=== PATIENT | female | born 1970 | race Caucasian/White ===

== ENCOUNTER 2017-04-03 16:47 | Emergency (ER) | payer MEDICAID ==
[2017-04-03 16:56] VITALS: BP 125/77; PULSE 77; RESP 17; TEMP 98.4; O2SAT 99
--- NOTE | 2017-04-03 17:23 | EDPHY ---
H & P Time Seen by Provider: 04/03/17 17:09 HPI/ROS: CHIEF COMPLAINT: Right shoulder injury HISTORY OF PRESENT ILLNESS: 47-year-old female presents to the emergency department by private vehicle complaining of pain in her right shoulder. 3 days ago she fell going down the stairs and thinks that she hyper extended her right shoulder as she was putting her arm back to brace her fall. She complains of isolated pain to the right shoulder specially with the movement. She is right-hand dominant. Denies any other trauma or injury. She did not hit her head or lose consciousness. ROS: Denies numbness or tingling in her fingers, pain in her right wrist or elbow. Denies neck pain. Past Medical/Surgical History: Hysterectomy Social History: Single Smoking Status: Current some day smoker Physical Exam: On examination there is no obvious swelling or deformity noted to the right shoulder. She is able to internally rotate as well as externally rotate the right shoulder with some discomfort. She has reproducible pain with palpation of the over the right AC joint as well as over the distal clavicle. No palpable crepitus or other bony abnormality. Full range of motion of the right elbow and right wrist. Strong radial pulse at the right wrist. Constitutional: Initial Vital Signs Temperature (C) 36.9 C 04/03/17 16:53 Heart Rate 77 04/03/17 16:53 Respiratory Rate 17 04/03/17 16:53 Blood Pressure 125/77 H 04/03/17 16:53 O2 Sat (%) 99 04/03/17 16:53 O2 Delivery Mode Room Air Allergies/Adverse Reactions: codeine Allergy (Verified 04/03/17 16:51) erythromycin base Allergy (Verified 04/03/17 16:52) morphine Allergy (Verified 04/03/17 16:52) Home Medications: Medication Instructions Recorded GABAPENTIN 04/03/17 LaMICtal 04/03/17 Remeron 04/03/17 traZODone 04/03/17 MDM/Departure - MDM Imaging Results: Imaging Impressions Clavicle X-Ray 04/03/17 17:10 Impression: No acute osseous abnormality. Imaging: I viewed and interpreted images myself Procedures: Patient was placed in a sling for comfort and examined post application in good placement with normal TANK TENDER. ED Course/Re-evaluation: 47-year-old female presents to the emergency department with right shoulder injury. X-rays reveal no fractures. She was placed in a sling and given orthopedic referral. - Depart Disposition: Home, Routine, Self-Care Clinical Impression: Sprain of right shoulder Qualifiers: Encounter type: initial encounter Shoulder sprain type: unspecified sprain Qualified Code(s): S43.401A - Unspecified sprain of right shoulder joint, initial encounter Condition: Good Instructions: Shoulder Sprain (ED) Additional Instructions: Ibuprofen 600 mg every 8 hours as needed for pain. Sling for comfort and support. Follow up with orthopedic surgeon next week to recheck. Return to the emergency department if you developed numbness or tingling in your fingers, feelings of weakness in her right upper extremity, or if you feel worse in any way. Referrals: Gume Castano MD [Medical Doctor] - 5-7 days, call for appt. (Orthopedic surgeon on-call)
== END 2017-04-03 18:47 | disposition home or self-care (01) ==
DX: S43.401A Unspecified sprain of right shoulder joint, initial encounter (principal); F17.200 Nicotine dependence, unspecified, uncomplicated; W10.8XXA Fall (on) (from) other stairs and steps, initial encounter
CPT/HCPCS: A4565

== ENCOUNTER 2017-09-05 10:06 | Emergency (ER) | payer OTHER, MEDICAID ==
[2017-09-05 10:15] VITALS: RESP 16; TEMP 97.9
[2017-09-05] MEDS ORDERED: OXYCODONE/APAP 5/325 TAB PO ONE (11:01)
--- NOTE | 2017-09-05 11:01 | EDPHY ---
General Narrative: CHIEF COMPLAINT: Head injury HISTORY OF PRESENT ILLNESS: Patient presents with complaints of head injury while at work. This happened at 8:00 a.m. today. She was getting something out of her locker when her skis fell. She bent over to pick them up and when she stood up she struck her head. She is not entirely sure what she hit but she thinks it was part of her locker with a locker door. She did not lose consciousness but had "a quick black out." She has a headache and mild nausea. No vomiting. No changes in vision at this time. No neck pain or stiffness. She does have a laceration that was bleeding heavily but has stopped with simple pressure. She has no injury elsewhere. No numbness or tingling. No difficulty ambulating. Tetanus is up-to-date. No other associated complaints or modifying factors. TIME OF INJURY: 8:00 a.m. today TETANUS STATUS: Less than 10 years ago MEDICAL/SURGICAL/SOCIAL HISTORY: Bipolar and anxiety. Nonsmoker. 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 Scalp laceration as below. No Walters sign. No raccoon eyes. No depression or hematoma. ENT: Pupils are equal, round and reactive to light. EOMs intact. Neck: Supple nontender. No crepitus, step-off or deformity. Cardiovascular: Pulses normal throughout. No murmur. Brisk cap refill Neurological: GCS 15. Cranial nerves 2-12 grossly intact. A&O, sensory symmetric, plate developer strength in the strength symmetric. Normal toe walk. Normal heel walk. No pronator drift. Normal [id number]. Skin: Warm and dry, no rash. There is a 1 cm laceration to the top of the scalp. No active bleeding. No foreign body. No injury to the galea noted. Extremities: Nontender, no pedal edema DIFFERENTIAL DIAGNOSES: Including but not limited to intracranial hemorrhage, basilar skull fracture, concussion, closed head injury, scalp laceration MDM: 10:45 a.m. Closed head injury with scalp laceration. Difficult to fully evaluate the wound at this time is that needs to be irrigated. [place] CT head rules are negative. Additionally her mechanism is mild I do not feel she warrants CT scan of the head at this time. Her neuro exam is fully intact. She is ambulating well without assistance. She is not vomiting. I have anesthetize the laceration. Proceed with irrigation every exploration. 11:30 a.m. Wound has been clean and I have re-evaluated. There is a 1 cm superficial laceration on the top of the scalp. I have close this was staple pair without complication. We discussed wound care. We discussed follow up with worker's compensation Clinic. We discussed ED precautions for worsening headache, dizziness, syncope, vomiting, neck pain or stiffness. I do feel she is stable for discharge home with anti-inflammatories and precautions as discussed. Return in 10 days for staple removal. She is comfortable this plan and discharged home stable condition. PROCEDURE: Laceration repair Consent: Verbal Location: Scalp Length of repair: 1 cm Complexity: Simple Layer involvement: Single Anesthesia: Local. 1% lidocaine plain. 5 mL Irrigation: Extensive Debridement: None Procedure description: Following good anesthesia, the wound was copiously irrigated. Wound bed was explored with a sterile glove, and there is no foreign body noted. There is no exposure of the galea. Wound borders were approximated well with good hemostasis. Tolerated well without complication. Suture/Staple material: 1 Staple Wound care: Routine as discussed Suture/Staple removal: 10 Days SUPERVISION: Patient was independently examined, but I discussed the case with my secondary supervising physician Dr. Garcia. ED Precautions: Worsening pain. Erythema, edema, cyanosis, pallor, paresthesia or anesthesia. - History Smoking Status: Former smoker - Objective Vital Signs: Initial Vital Signs Temperature (C) 97.9 F 09/05/17 10:11 Heart Rate 92 09/05/17 10:11 Respiratory Rate 16 09/05/17 10:11 Blood Pressure 123/85 H 09/05/17 10:11 O2 Sat (%) 98 09/05/17 10:11 O2 Delivery Mode Room Air Allergies/Adverse Reactions: codeine Allergy (Verified 04/03/17 16:51) erythromycin base Allergy (Verified 04/03/17 16:52) morphine Allergy (Verified 04/03/17 16:52) Home Medications: Medication Instructions Recorded GABAPENTIN 04/03/17 LaMICtal 04/03/17 Remeron 04/03/17 traZODone 04/03/17 Medications Given: Discontinued Medications Oxycodone/Acetaminophen (Percocet 5/325) 1 tab PO EDNOW ONE Stop: 09/05/17 11:02 Last Admin: 09/05/17 11:04 Dose: 1 tab Departure - Departure Disposition: Home, Routine, Self-Care Clinical Impression: Scalp laceration Qualifiers: Encounter type: initial encounter Qualified Code(s): S01.01XA - Laceration without foreign body of scalp, initial encounter Closed head injury Qualifiers: Encounter type: initial encounter Qualified Code(s): S09.90XA - Unspecified injury of head, initial encounter Condition: Good Instructions: Concussion (ED), Head Injury (ED), Staple Care (ED) Additional Instructions: 1. Keep the wound clean, dry 2. No submersion in hot tubs or swimming pools until molina are removed 3. Staple removal in 10 days 4. Contact her worker's compensation Clinic for further care 5. ED precautions for worsening headache, vomiting, visual disturbance, neck pain or stiffness, numbness, tingling or weakness Referrals: NONE *PRIMARY CARE P,. [Primary Care Provider] - As per Instructions Mimi Syed DO [Doctor of Osteopathy] - As per Instructions Stand Alone Forms: Work Limited Duty, Work Comp Follow Up
[2017-09-05 12:08] VITALS: BP 109/60; PULSE 70; O2SAT 96
== END 2017-09-05 12:08 | disposition home or self-care (01) ==
PROC: 0HQ0XZZ Repair Scalp Skin, External Approach (ICD-10-PCS; principal; 2017-09-05)
DX: S01.01XA Laceration without foreign body of scalp, initial encounter (principal); V00.321A Fall from snow-skis, initial encounter; Y92.69 Other specified industrial and construction area as the place of occurrence of the external cause; Y99.0 Civilian activity done for income or pay; Y93.89 Activity, other specified; Z87.891 Personal history of nicotine dependence

== ENCOUNTER 2017-11-29 18:02 | Emergency (ER) | payer MEDICAID ==
[2017-11-29 18:12] VITALS: TEMP 98.6
[2017-11-29] MEDS ORDERED: AZITHROMYCIN 250 MG TAB PO ONE (18:28)
[2017-11-29] MEDS ORDERED: IPRATROPIUM/ALBUTEROL 3 ML DEYVIAL IH ONE (18:28)
[2017-11-29] MEDS ORDERED: IBUPROFEN 600 MG TAB PO ONE (18:44)
--- NOTE | 2017-11-29 19:05 | EDPHY ---
H & P Time Seen by Provider: 11/29/17 18:14 HPI/ROS: This patient complains of dyspnea cough and ear pain. She explains that she has had a dry cough for 3 weeks now occasionally productive of sputum the feeling of chest congestion that is increased over the past few days. 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 The wheezing and shortness of breath of just started up over the past couple days. She has associated fatigue. She reports"sore chest muscles"but denies any pleuritic pain. Her or girlfriend/life partner brought her in by private vehicle for evaluation of her symptoms. ROS: Constitutional: No high fevers or chills though she has had some subjective low-grade fevers. HEENT: Nasal congestion but no sinus pain. She does have moderate right ear pain currently 4/10 intensity that improves with ibuprofen. Last dose of ibuprofen was 600 mg this morning. She denies sore throat or other HEENT complaints. Pulmonary: No hemoptysis. No respiratory distress. Cardiovascular: No heart palpitations. She denies any leg swelling or calf pain. GI: No abdominal pain, nausea vomiting Integumentary: No rash. 7 point ROS is otherwise negative Past Medical/Surgical History: Mood disorder She describes reactive airway disease with wheezing episodes when she gets colds as an adult in recent years. Smoking Status: Former smoker (The patient describes an approximate 15 pack- year smoking history and just quit 2 months ago.) Physical Exam: Physical Exam Vital signs are normal. General: No acute distress HEENT: Nose: Clear discharge bilaterally. No sinus tenderness to percussion. Ears: Right external canals clear right TM evaluation reveals a clear effusion. Left External canal and tympanic membrane is clear with no erythema or abnormal findings bilaterally. Oropharynx: No erythema or exudates. No dysphonia. No drooling or stridor. Eyes: Pupils equal and react to light. Extraocular motions are intact. Neck: Supple with no meningismus. No lymphadenopathy Lungs: Diminished breath sounds throughout bilaterally with wheezing. No rales or rhonchi appreciated. Cardiac: Regular rate and rhythm with no murmur gallop or rub no peripheral edema or calf tenderness. Skin: No rash or pallor. Neuro: Alert with no focal deficits noted. Initial differential diagnosis: Acute bronchitis, COPD with exacerbation, URI with reactive airway disease, pneumonia, serous otitis Constitutional: Initial Vital Signs Temperature (C) 37 C 11/29/17 18:09 Heart Rate 78 11/29/17 18:09 Respiratory Rate 18 11/29/17 18:09 Blood Pressure 117/62 11/29/17 18:09 O2 Sat (%) 95 11/29/17 18:09 O2 Delivery Mode Room Air Allergies/Adverse Reactions: codeine Allergy (Verified 04/03/17 16:51) erythromycin base Allergy (Verified 04/03/17 16:52) morphine Allergy (Verified 04/03/17 16:52) Home Medications: Medication Instructions Recorded GABAPENTIN 04/03/17 LaMICtal 04/03/17 Remeron 04/03/17 traZODone 04/03/17 Albuterol Hfa Anes Only [Proair 2 puffs IH Q4 PRN #1 mdi 11/29/17 Hfa Icu (*)] Azithromycin [Zithromax] 250 mg PO DAILY #4 tab 11/29/17 Fluticasone Hfa 220 Mcg [Flovent 2 puffs IH DAILY #1 mdi 11/29/17 220 MCG Hfa MDI (*)] MDM/Departure - MDM Medications Given: Discontinued Medications Albuterol/Ipratropium (Duoneb) 3 ml IH EDNOW ONE Stop: 11/29/17 18:29 Last Admin: 11/29/17 18:36 Dose: 3 ml Azithromycin (Zithromax) 500 mg PO EDNOW ONE PRN Reason: Protocol Stop: 11/29/17 18:29 Last Admin: 11/29/17 18:35 Dose: 500 mg Ibuprofen (Motrin) 600 mg PO EDNOW ONE Stop: 11/29/17 18:45 Last Admin: 11/29/17 18:53 Dose: 600 mg ED Course/Re-evaluation: Patient's initial peak flow was 250. She is given albuterol/Atrovent DuoNeb with marked improvement-increased aeration decreased wheeze subjective improvement in improvement in her peak flow to 400. Is given 1st dose of Zithromax 500 mg p.o. Discussion: Patient with significant reactive airway disease judging by her marked improvement with albuterol in terms of her peak flow. I counseled regarding this. She may also have an element of chronic bronchitis given her extensive smoking history. We discussed possibility of a chest x-ray but without hearing rales with a good O2 sat with less than 4 weeks duration of cough elected to hold off on chest x-ray at this time. Patient is comfortable with this plan. Her"chest muscle pain is consistent with her exam test chest wall tenderness. Will treat the patient with albuterol and Flovent steroid inhaler with Zithromax. I referred her to ferry terminal supervisor on-call if she has any ongoing symptoms. She understands the need to return emergency department should she develop any worsening of her symptoms despite the treatment plan. Answered all her questions prior to discharge home. - Depart Disposition: Home, Routine, Self-Care Clinical Impression: Acute bronchitis Qualifiers: Bronchitis organism: unspecified organism Qualified Code(s): J20.9 - Acute bronchitis, unspecified Serous otitis media Qualifiers: Chronicity: acute Laterality: right Recurrence: not specified as recurrent Qualified Code(s): H65.01 - Acute serous otitis media, right ear Condition: Good Instructions: Acute Bronchitis (ED), Reactive Airways Disease (ED), Serous Otitis Media (ED) Additional Instructions: Diagnoses: 1. Acute bronchitis 2. Reactive airway disease 3. Serous otitis Plan: Humidifier Guaifenesin Albuterol inhaler with spacer for cough, wheeze or shortness of breath Flovent steroid inhaler for 10-14 days Zithromax antibiotic as prescribed Ibuprofen in addition for discomfort and also to help swelling in your ear. Follow up with primary care physician for any ongoing symptoms. Consider follow -up with ferry terminal supervisor for any ongoing respiratory symptoms. Return emergency department for any significant worsening despite the treatment plan Stand Alone Forms: Work Excuse Prescriptions: Albuterol Hfa Anes Only [Proair Hfa Icu (*)] 2 puffs IH Q4 PRN #1 mdi PRN Reason: Wheezing Azithromycin [Zithromax] 250 mg PO DAILY #4 tab Fluticasone Hfa 220 Mcg [Flovent 220 MCG Hfa MDI (*)] 2 puffs IH DAILY #1 mdi Referrals: NONE *PRIMARY CARE P,. [Primary Care Provider] - As per Instructions Siva Will MD [Medical Doctor] - As per Instructions
[2017-11-29 19:47] VITALS: BP 110/67; PULSE 82; RESP 14; O2SAT 92
== END 2017-11-29 19:25 | disposition home or self-care (01) ==
LOC: CED 18:02
DX: J20.9 Acute bronchitis, unspecified (principal); H65.01 Acute serous otitis media, right ear; Z87.891 Personal history of nicotine dependence

== ENCOUNTER 2018-03-13 13:31 | Emergency (ER) | payer MEDICAID ==
[2018-03-13 13:37] VITALS: BP 111/75
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
[2018-03-13] MEDS ORDERED: KETOROLAC 30 MG/1 ML SDV IM ONE (14:16)
== END 2018-03-13 14:39 | disposition home or self-care (01) ==
DX: S89.92XA Unspecified injury of left lower leg, initial encounter (principal); J45.909 Unspecified asthma, uncomplicated; Z87.891 Personal history of nicotine dependence; V29.9XXA Motorcycle rider (driver) (passenger) injured in unspecified traffic accident, initial encounter; Y92.410 Unspecified street and highway as the place of occurrence of the external cause; Y99.8 Other external cause status; Y93.89 Activity, other specified
CPT/HCPCS: J1885

== ENCOUNTER → 2018-03-25 | Outpatient (CLI) | payer MEDICAID | LOC: FIMAGING 10:08 | PROVIDERS: ATTEND Orthopaedic Surgery | DX: S83.252A Bucket-handle tear of lateral meniscus, current injury, left knee, initial encounter (principal); S83.412A Sprain of medial collateral ligament of left knee, initial encounter; M22.42 Chondromalacia patellae, left knee ==

== ENCOUNTER 2018-04-03 08:51 | Day surgery (SDC) | payer MEDICAID ==
[2018-04-03] MEDS ORDERED: ceFAZolin 2 GM/DEXTROSE 100 ML IV ONE (09:09)
[2018-04-03] MEDS ORDERED: PREGABALIN 150 MG CAP PO ONE (09:09)
[2018-04-03] MEDS ORDERED: LR 1,000 ML IV ONE (09:10)
[2018-04-03] MEDS ORDERED: EPINEPHrine 1 MG/ML INJ ONE (09:36)
[2018-04-03] MEDS ORDERED: VANCOMYCIN 1 GM VIAL ONE (09:36)
[2018-04-03] MEDS ORDERED: BUPIVACAINE 0.25% 30 ML SDV ONE (09:36)
--- NOTE | 2018-04-03 10:44 | PDANEPAE ---
ANE History of Present Illness l acl tear ANE Past Medical History - Cardiovascular History Hx Hypertension: No Hx Arrhythmias: No Hx Chest Pain: No Hx Coronary Artery / Peripheral Vascular Disease: No Hx CHF / Valvular Disease: No Hx Palpitations: No - Pulmonary History Hx COPD: No Hx Asthma/Reactive Airway Disease: No Hx Recent Upper Respiratory Infection: No Hx Oxygen in Use at Home: No Hx Sleep Apnea: No Sleep Apnea Screening Result - Last Documented: Negative Pulmonary History Comment: hx of pna and bronchitis the last 3 yrs- no issues since 06/2017 - Neurologic History Hx Cerebrovascular Accident: No Hx Seizures: No Hx Dementia: No - Endocrine History Hx Diabetes: No - Renal History Hx Renal Disorders: No - Liver History Hx Hepatic Disorders: No - Neurological & Psychiatric Hx Hx Neurological and Psychiatric Disorders: Yes Neurological / Psychiatric History Comment: extreme anxiety with panic attacks. depression. bipolar. hyperactivity disorder- is a "runner" when she gets anxious - Cancer History Hx Cancer: No - Congenital Disorder History Hx Congenital Disorders: No - GI History Hx Gastrointestinal Disorders: No - Other Health History Other Health History: left hand has cast currently- broken left 5th metacarpal. wears glasses at night. contacts for special events - Chronic Pain History Chronic Pain: No - Surgical History Prior Surgeries: hysterectomy 2014 ANE Review of Systems Review of Systems: - Exercise capacity METS (RN): 4 METS ANE Patient History - Allergies Allergies/Adverse Reactions: bee venom protein (honey bee) Allergy (Verified 03/28/18 11:30) codeine Allergy (Verified 03/28/18 11:30) little bit of a rash erythromycin base Allergy (Verified 03/28/18 11:30) makes me seriously sick morphine Allergy (Verified 03/28/18 11:30) unknown rxn- needed to be intubated - Home Medications Home Medications: LaMICtal 04/03/17 [Last Taken 04/02/18 19:00] Remeron 04/03/17 [Last Taken 04/03/18 07:00] traZODone PRN 04/03/17 [Last Taken 2 Days Ago ~04/01/18] Ibuprofen 03/28/18 [Last Taken 03/28/18] Hydrocodone/APAP 5/325 [[place] 5/325 (*)] 1 tab PO 04/03/18 [Last Taken 04/03/18] - NPO status NPO Since - Liquids (Date): 04/02/18 NPO Since - Liquids (Time): 23:00 NPO Since - Solids (Date): 04/02/18 NPO Since - Solids (Time): 17:00 - Smoking Hx Smoking Status: Former smoker - Family Anes Hx Family Hx Anesthesia Complications: father- had special recommendations with intubation d/t larynx issues ANE Labs/Vital Signs - Vital Signs Blood Pressure: 128/77 Heart Rate: 78 Respiratory Rate: 14 O2 Sat (%): 97 Height: 167.64 cm Weight: 65.771 kg ANE Physical Exam - Airway Neck exam: FROM Mallampati Score: Class 2 Mouth exam: normal dental/mouth exam - Pulmonary Pulmonary: no respiratory distress - Cardiovascular Cardiovascular: regular rate and rhythym - ASA Status ASA Status: II ANE Anesthesia Plan Anesthesia Plan: GA w LMA Regional Anesthesia: adductor canal FNB
[2018-04-03] MEDS ORDERED: fentaNYL 100 MCG/2 ML INJ ONE ×6 (10:48→14:49)
[2018-04-03] MEDS ORDERED: MIDAZOLAM 2 MG/2 ML VIAL ONE ×2 (10:48)
--- NOTE | 2018-04-03 10:48 | PDHPUP ---
History & Physical Update H&P update statement: This history and physical update is based on an assessment of the patient which was completed after admission or registration (within 24 hours), but prior to the surgery/procedure. H&P update: H&P reviewed & patient examined, no change in patient's condition since H&P completed
[2018-04-03] MEDS ORDERED: PROPOFOL/EMULSION 500 MG/50 ML BOTTLE IV ONE (11:21)
[2018-04-03] MEDS ORDERED: HYDROmorphONE/DILAUDID 2 MG/ML INJ ONE (11:46)
[2018-04-03] MEDS ORDERED: ONDANSETRON 4 MG/2 ML VIAL ONE (13:51)
[2018-04-03] MEDS ORDERED: DEXAMETHASONE 4 MG/ML VIAL ONE (13:51)
[2018-04-03] MEDS ORDERED: ONDANSETRON 4 MG/2 ML VIAL IVP PRN (13:55)
[2018-04-03] MEDS ORDERED: PROMETHAZINE HCL 25 MG/ML INJ IVP PRN (13:55)
[2018-04-03] MEDS ORDERED: HYDROmorphONE/DILAUDID 1 MG/ML INJ IVP PRN (13:55)
[2018-04-03] MEDS ORDERED: NALOXONE HCL 0.4 MG/ML INJ IVP PRN (13:55)
--- NOTE | 2018-04-03 14:02 | POSTANESTH ---
Post Anesthetic Evaluation Cardiovascular Status: Normal, Stable Respiratory Status: Normal, Stable Level of Consciousness/Mental Status: Can Participate in Eval Pain Control: Adequate, Prn Tx Ordered Nausea/Vomiting Control: Adequate, Prn Tx Ordered Complications Possibly Related to Anesthesia: None Noted
[2018-04-03] MEDS ORDERED: MEPERIDINE 25 MG/0.5 ML AMP IVP ONE (14:06)
[2018-04-03] MEDS: fentaNYL 100 MCG/2 ML INJ IVP PRN ×3 (14:10→14:51)
[2018-04-03] MEDS ORDERED: MEPERIDINE 25 MG/0.5 ML AMP ONE (14:14)
[2018-04-03] MEDS ORDERED: HYDROmorphONE/DILAUDID 1 MG/ML INJ ONE (14:22)
[2018-04-03] MEDS ORDERED: DIAZEPAM 5 MG/ML 1 ML SYR ONE (14:26)
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
[2018-04-03 15:51] VITALS: BP 129/81
[2018-04-03] MEDS ORDERED: OXYCODONE/APAP 5/325 TAB PO ONE (16:30)
--- NOTE | 2018-04-08 18:08 | GOP ---
[f rep st] OPERATIVE REPORT DATE OF OPERATION: 04/03/2018 SURGEON: Urban Stafford MD ELEMENTARY LIBRARIAN: Arik Arizmendi, KAYA, LSA. Hemodialysis Rn was required for the procedure due to complexity of the case, patient's condition for positioning, prepping, draping, driving the arthroscope, manipul ation of instruments, closure, and graft preparation. ANESTHESIA: General and adductor canal regional nerve block. PREOPERATIVE DIAGNOSIS: Left knee anterior cruciate ligament tear, bucket-handle lateral meniscus te ar and grade 2 medial collateral ligament tear. POSTOPERATIVE DIAGNOSIS: Left knee anterior cruciate ligament tear, bucket-handle lateral meniscus t ear and grade 2 medial collateral ligament tear, as well as chondromalacia of the patella. PROCEDURE PERFORMED: Arthroscopic anterior cruciate ligament reconstruction with hamstring tendon al lograft, lateral meniscus repair. FINDINGS: Examination under anesthesia revealed a grade 2 B anterior Gifty's with positive pivot s hift, a grade 2+ anterior drawer with no firm endpoint. Range of motion was 5 degrees short of full extension to 130 of flexion. The patient demonstrated stability of the MCL and valgus stress at 0 de grees. She did have 5-10 mm of MCL laxity and valgus stress compared to the contralateral side at 30 degrees. However there was a firm endpoint. Diagnostic arthroscopy revealed a full-thickness tear from the femoral origin of the ACL and PCL was intact. There was a displacement of the bucket-handle lateral meniscus into the intercondylar notch with peripheral tearing from the posterior horn through the body of the lateral meniscus. The menisc al root was intact. The medial meniscus was intact. There was a grade 2 and 3 chondromalacia of the patella. No significant chondral damage or chondromalacia of the medial or lateral tibial plateau o r femoral condyles. SPECIMENS: None. ESTIMATED BLOOD LOSS: 30 cc. INDICATIONS: Patient sustained acute injury to the knee resulting in ACL tear, bucket-handle lateral meniscus tear and MCL tear. MRI demonstrated a tear of the posterior horn and body of the lateral m eniscus with a bucket-handle displacement into the intercondylar notch. A full-thickness tear of the femoral insertion of the ACL as well as high-grade tearing and strain of the MCL. Patient continued with symptoms and inability to achieve full motion. Clinically, the patient had positive lateral kaushik int line tenderness as well as Gifty test. We discussed graft options including autograft and allo graft and the patient elected to proceed with a hamstring allograft. She verbalized the understandin g of the risks of procedure,and signed informed consent prior to the procedure. DESCRIPTION OF PROCEDURE: The patient seen in the holding area. Operative site was signed. H and P is verified and updated accordingly. Patient is seen in the operating room. After smooth induction of general anesthesia and adductor canal nerve block, patient was placed supine position with a late ral post. Tourniquet was placed around the operative thigh and lower extremity was prepped and drape d in usual sterile fashion. Operative site was confirmed by signature, operative time-out performed. Allergies reviewed, antibiotics administered. Medial and lateral portals were marked out and infiltrated with 0.25% Marcaine with epinephrine. Lateral meniscus repair. The lateral meniscus was easily reduced back into its anatomic position with the probe, all inside meniscal repair technique was used in the posterior horn of the lateral menisc us in a vertical mattress type configuration. An inside-out technique was utilized in the body of th e lateral meniscus, also in a vertical mattress configuration. A small incision was made laterally a nd the sutures were tied on the lateral aspect of the capsule. ACL reconstruction. Using a graft link hamstring tendon allograft, the ACL remnant was taken down us ing the shaver and ArthroCare and notchplasty was performed with a bur. The Arthrex ACL guide was pl aced in the center of the [place] ACL footprint, measured to be approximately 43% of the distance from the proximal articular margin to the distal articular margin of the lateral wall of the femoral cond yle. Guide was angled approximately 20 degrees to the trans epicondylar axis in the axial plane and 60 degrees in the coronal plane. A size 9.5 salt cutter was used for the retrograde drilling of the femoral tunnel. Fiber stick with a passing suture was passed through the tunnel and retrieved throug h the lateral portal for later use. The tibial tunnel was drilled in similar fashion with the guide set to 60 degrees using a retro drill without penetrating the tibial cortex. A fiber stick was passe d through the tibial tunnel and retrieved through the medial portal for later passage of the graft. The femoral passing suture was used to pull the leading sutures from the graft through the femoral tu nnel. The tight rope button was visualized exiting and laying on the lateral aspect of the cortex ar throscopically and thus fluoroscopy was not utilized and excellent fixation was achieved. Sutures we re then used to cinch the graft into the femoral tunnel. Fixation was tested and was excellent. The tibial passing suture was then used to pass the graft into the tibial tunnel. The knee was cycled w ith maximal tension on the graft. There was no significant roof or lateral wall impingement. All in struments were then withdrawn from the joint. The knee was positioned in full extension, reverse Lac hman, held in place and maximal tension on the graft. The graft was then fixated on the tibial side with an ABS button. Femoral and tibial implant sutures were tied over their respective buttons. Art hroscope was then once again reintroduced in the joint. Fixation was confirmed. The graft was under good tension. Knee had full range of motion passively. All instruments were withdrawn from the joint. Portals were closed with 3-0 Monocryl and Dermabond, Steri-Strips. Sterile dressings were applied. The patient is safely awakened, extubated, taken to r ecovery room in stable condition. All critical portions of the procedure were performed by myself, Singh Stafford. This operative note was created by myself, Dr. Stafford. I was immediately available for emerge ncy cross-coverage at all times. DRAINS: None. COMPLICATIONS: None. IMPLANTS: Arthrex graft flank femoral tibial suspensory suture, Arthrex tight rope retro button x1, Arthrex tightrope ABS button x1, [employer]hew all-inside Fast Fix meniscus repair x2 and inside o ut meniscus repair suture x1. TOURNIQUET TIME: 85 minutes. POSTOPERATIVE INSTRUCTIONS: Weightbearing as tolerated with the knee locked in extension during weig htbearing, removing and unlocking the brace for range of motion exercises. Aspirin for DVT prophylax is. Follow up in 10-14 days for 1st postoperative visit. /[id number]/MODL
== END 2018-04-03 17:19 | disposition home or self-care (01) ==
LOC: FSGY 08:51
PROVIDERS: ATTEND Orthopaedic Surgery
DX: S83.252A Bucket-handle tear of lateral meniscus, current injury, left knee, initial encounter (principal); M23.612 Other spontaneous disruption of anterior cruciate ligament of left knee; M23.51 Chronic instability of knee, right knee; M94.20 Chondromalacia, unspecified site
CPT/HCPCS: C1713; C1762; J0171; J0690; J1100; J1170; J2175; J2250; J2405; J2704; J3010; J3360; J3370

== ENCOUNTER 2018-06-19 11:59 | Day surgery (SDC) | payer MEDICAID ==
[2018-06-19] MEDS ORDERED: LR 1,000 ML IV ONE (12:17)
[2018-06-19] MEDS ORDERED: BUPIVACAINE/EPI 0.5% 30 ML SDV ONE (13:36)
[2018-06-19] MEDS ORDERED: HYDROCODONE/APAP 5/325 TAB PO PRN (15:50)
[2018-06-19] MEDS ORDERED: NS 500 ML IV PRN (15:50)
[2018-06-19] MEDS ORDERED: HYDROmorphONE/DILAUDID 2 MG/ML INJ IVP PRN (15:50)
[2018-06-19] MEDS ORDERED: ACETAMINOPHEN 500 MG TAB PO PRN (15:50)
[2018-06-19] MEDS ORDERED: DEXAMETHASONE 4 MG/ML VIAL IVP PRN (15:50)
[2018-06-19] MEDS ORDERED: oxyCODONE IR 5 MG TAB PO PRN (15:50)
[2018-06-19] MEDS ORDERED: ALBUTEROL 3 ML DEYVIAL IH PRN (15:50)
[2018-06-19] MEDS ORDERED: NALOXONE HCL 0.4 MG/ML INJ IVP PRN (15:50)
--- NOTE | 2018-06-19 15:50 | PDANEPAE ---
ANE History of Present Illness here for Knee scope ANE Past Medical History - Cardiovascular History Hx Hypertension: No Hx Arrhythmias: No Hx Chest Pain: No Hx Coronary Artery / Peripheral Vascular Disease: No Hx CHF / Valvular Disease: No Hx Palpitations: No - Pulmonary History Hx COPD: No Hx Asthma/Reactive Airway Disease: No Hx Recent Upper Respiratory Infection: No Hx Oxygen in Use at Home: No Hx Sleep Apnea: No Sleep Apnea Screening Result - Last Documented: Negative Pulmonary History Comment: hx of pna and bronchitis the last 3 yrs- no issues since 06/2017 - Neurologic History Hx Cerebrovascular Accident: No Hx Seizures: No Hx Dementia: No - Endocrine History Hx Diabetes: No - Renal History Hx Renal Disorders: No - Liver History Hx Hepatic Disorders: No - Neurological & Psychiatric Hx Hx Neurological and Psychiatric Disorders: Yes Neurological / Psychiatric History Comment: extreme anxiety with panic attacks. depression. bipolar. hyperactivity disorder- is a "runner" when she gets anxious - Cancer History Hx Cancer: No - Congenital Disorder History Hx Congenital Disorders: No - GI History Hx Gastrointestinal Disorders: No - Other Health History Other Health History: wears glasses at night. contacts for special events. - Chronic Pain History Chronic Pain: Yes (left knee) - Surgical History Prior Surgeries: Left ACL, 03/2018. hysterectomy 2014 ANE Review of Systems Review of Systems: - Exercise capacity METS (RN): 4 METS ANE Patient History - Allergies Allergies/Adverse Reactions: bee venom protein (honey bee) Allergy (Verified 03/28/18 11:30) codeine Allergy (Verified 03/28/18 11:30) little bit of a rash erythromycin base Allergy (Verified 03/28/18 11:30) makes me seriously sick morphine Allergy (Verified 03/28/18 11:30) unknown rxn- needed to be intubated - Home Medications Home medications: home medication list seen and reviewed Home Medications: LaMICtal 04/03/17 [Last Taken 06/18/18] Remeron 04/03/17 [Last Taken 06/19/18] traZODone PRN 04/03/17 [Last Taken 06/17/18] Lunesta PRN 06/18/18 [Last Taken 06/18/18] traMADol PRN 06/18/18 [Last Taken 06/16/18] - NPO status NPO Status: no food or drink >8 hours NPO Since - Liquids (Date): 06/19/18 NPO Since - Liquids (Time): 08:30 NPO Since - Solids (Date): 06/18/18 NPO Since - Solids (Time): 20:00 - Smoking Hx Smoking Status: Former smoker - Family Anes Hx Family Hx Anesthesia Complications: father- had special recommendations with intubation d/t larynx issues ANE Labs/Vital Signs - Vital Signs Vital Signs: reviewed preoperatively; see RN documention for details Blood Pressure: 116/81 Heart Rate: 81 Respiratory Rate: 16 O2 Sat (%): 95 Height: 167.64 cm Weight: 65.771 kg ANE Physical Exam - Airway Neck exam: FROM Mallampati Score: Class 1 - Pulmonary Pulmonary: no respiratory distress - Cardiovascular Cardiovascular: regular rate and rhythym - ASA Status ASA Status: II ANE Anesthesia Plan Anesthesia Plan: GA w LMA
[2018-06-19] MEDS ORDERED: MIDAZOLAM 2 MG/2 ML VIAL IVP ONE (15:51)
[2018-06-19] MEDS ORDERED: PROPOFOL/EMULSION 500 MG/50 ML BOTTLE IV ONE (16:08)
[2018-06-19] MEDS ORDERED: fentaNYL 100 MCG/2 ML INJ ONE ×4 (16:08→18:26)
[2018-06-19] MEDS ORDERED: LIDOCAINE 2% 2 ML INJ ONE (16:09)
[2018-06-19] MEDS ORDERED: ROPIVACAINE 0.2% 80 MG, EPINEPHrine 0.2 MG, KETOROLAC TROMETHAMINE 30 MG in SYRINGE 0 ML IU ONE (16:28)
[2018-06-19] MEDS ORDERED: ceFAZolin 2 GM/DEXTROSE 100 ML IV ONE (16:28)
[2018-06-19] MEDS ORDERED: DEXAMETHASONE 4 MG/ML VIAL ONE ×2 (16:29)
[2018-06-19] MEDS ORDERED: ONDANSETRON 4 MG/2 ML VIAL ONE ×3 (16:39→19:48)
[2018-06-19] MEDS ORDERED: KETAMINE 200 MG/20 ML VIAL ONE (16:41)
[2018-06-19] MEDS ORDERED: ceFAZolin 1 GM VIAL ONE ×2 (16:46)
[2018-06-19] MEDS ORDERED: PROPOFOL 200 MG/20 ML VIAL ONE (16:55)
[2018-06-19] MEDS: ONDANSETRON 4 MG/2 ML VIAL IVP PRN ×2 (18:24→19:49)
--- NOTE | 2018-06-19 18:25 | POSTOPPROG ---
Post Op Note Date of Operation: 06/19/18 Surgeon: Urban Stafford Anesthesiologist: MD Beto Anesthesia: GET(General Endotracheal) Pre-op Diagnosis: Left knee arthrofibrosis Post-op Diagnosis: same Procedure: Left knee arthroscopy with extensive debridment Inf/Abcess present in the surg proc area at time of surgery?: No EBL: Minimal (10)
[2018-06-19] MEDS: fentaNYL 100 MCG/2 ML INJ IVP PRN ×2 (18:26→18:39)
[2018-06-19] MEDS ORDERED: DIAZEPAM 5 MG/ML 1 ML SYR ONE (19:05)
[2018-06-19] MEDS ORDERED: DIAZEPAM 5 MG/ML 1 ML SYR IVP ONE (19:15)
[2018-06-19] MEDS ORDERED: oxyCODONE IR 5 MG TAB ONE (19:21)
[2018-06-19 20:07] VITALS: BP 121/93
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
== END 2018-06-19 20:43 | disposition home or self-care (01) ==
LOC: FSGY 11:59
PROVIDERS: ATTEND Orthopaedic Surgery
DX: M24.662 Ankylosis, left knee (principal)
CPT/HCPCS: J0171; J0690; J1100; J1885; J2250; J2405; J2704; J2795; J3010; J3360

== ENCOUNTER 2018-10-09 11:49 | Emergency (ER) | payer MEDICAID ==
[2018-10-09] MEDS ORDERED: ONDANSETRON 4 MG/2 ML VIAL IVP ONE (13:14)
[2018-10-09] MEDS ORDERED: MAG HYDROX/AL HYDROX/SIMETH 30 ML UDCUP PO ONE (13:15)
[2018-10-09] MEDS ORDERED: NS 1,000 ML IV ONE (13:15)
[2018-10-09] MEDS ORDERED: LIDOCAINE 2% VISCOUS 15 ML UDCUP PO ONE (13:15)
[2018-10-09] MEDS ORDERED: HYOSCYAMINE SULFATE 0.125 MG TAB PO ONE (13:15)
[2018-10-09] MEDS ORDERED: FAMOTIDINE 20 MG TAB PO ONE (13:38)
--- NOTE | 2018-10-09 13:42 | EDPHY ---
H & P Stated Complaint: abd pain Time Seen by Provider: 10/09/18 13:30 HPI/ROS: CHIEF COMPLAINT: Abdominal pain x3 days HISTORY OF PRESENT ILLNESS: 48-year-old female in the ER via private vehicle complaining of epigastric and right upper quadrant pain with radiation to her back for the past 3 days, "really bad heartburn". She has associated nausea with no vomiting. Bowel movements normal. No dyspnea. No chest pain. No syncope or near syncope. No URI symptoms. PRIMARY CARE PROVIDER: REVIEW OF SYSTEMS: 10 systems reviewed and negative with the exception of the elements mentioned in the history of present illness PAST MEDICAL & SURGICAL HISTORY: Hysterectomy. Bipolar disorder. Anxiety. 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 PHYSICAL EXAM (Prior to examination, patient consented to physical exam, hands were washed and my usual and customary physical exam procedures followed) 1) GENERAL: Well-developed, well-nourished, alert and oriented. Appears to be in no acute distress. 2) HEAD: Normocephalic, atraumatic 3) HEENT: Pupils equal, round, reactive to light bilaterally. Sclera anicteric. Nasopharynx, oropharynx, clear, no lesions. Dry mucous membranes. 4) NECK: Full range of motion, no meningeal signs. 5) LUNGS: Clear auscultation bilaterally, no wheezes, no rhonchi, no retractions. 6) HEART: Regular rate and rhythm, no murmur, no heave, no gallop. 7) ABDOMEN: tender to palpation epigastrium, tender to palpation right upper quadrant. Negative McBurney's,, negative Rovsing's, negative peritoneal sign, 8) MUSCULOSKELETAL: Moving all extremities, no focal areas of tenderness, no obvious trauma. No peripheral edema or discoloration. 9) BACK: No CVA tenderness, no midline vertebral tenderness, no fluctuance, no step-off, no obvious trauma, no visual or palpable abnormality. 10) SKIN: No rash, no petechiae. 11) Psychiatric: Patient is oriented X 3, there is no agitation. DIFFERENTIAL DIAGNOSIS: In no particular order, including but not limited to biliary colic, cardiac pathology, cholecystitis, peptic ulcer disease, pancreatitis, and gastroenteritis. This is a partial list of diagnoses considered. These considerations are based on history, physical exam, past history and reassessment. - Personal History LMP (Females 10-55): Hysterectomy Current Tetanus/Diphtheria Vaccine: Yes Tetanus Vaccine Date: 2015 - Medical/Surgical History Hx Asthma: Yes Hx Chronic Respiratory Disease: No Hx Diabetes: No Hx Cardiac Disease: No Hx Renal Disease: No Hx Cirrhosis: No Hx Alcoholism: No Hx HIV/AIDS: No Hx Splenectomy or Spleen Trauma: No Other PMH: bipolar, anxiety - Social History Smoking Status: Former smoker Constitutional: Initial Vital Signs Temperature (C) 37.0 C 10/09/18 12:10 Heart Rate 92 10/09/18 12:10 Respiratory Rate 18 10/09/18 12:10 Blood Pressure 138/98 H 10/09/18 12:10 O2 Sat (%) 95 10/09/18 12:10 O2 Delivery Mode Room Air Allergies/Adverse Reactions: bee venom protein (honey bee) Allergy (Verified 10/09/18 12:14) codeine Allergy (Verified 10/09/18 12:14) little bit of a rash erythromycin base Allergy (Verified 10/09/18 12:14) makes me seriously sick morphine Allergy (Verified 10/09/18 12:14) unknown rxn- needed to be intubated Home Medications: Medication Instructions Recorded LaMICtal 04/03/17 Remeron 04/03/17 traZODone PRN 04/03/17 Lunesta PRN 06/18/18 traMADol PRN 06/18/18 Pantoprazole Sodium [Protonix 40mg 40 mg PO DAILY #30 tab 10/09/18 (RX)] Medical Decision Making - Diagnostics Imaging Results: Imaging Impressions Chest X-Ray 10/09/18 13:38 Impression: 1. Chest negative for acute abnormality. 2. Calcifications in the left axilla are of uncertain significance. Abdomen Ultrasound 10/09/18 13:39 Impression: Common bile duct dilatation, measuring 9 mm, with no visible intrahepatic ductal dilatation. Findings discussed with Singh Mendoza 10/09/2018 at 14:34. Images reviewed myself ED Course/Re-evaluation: 3:14 p.m.: Re-evaluation. Discussed laboratory and diagnostic results. Pain controlled. Discussed the slightly enlarged common bile duct. Doubt acute cholecystitis. Recommended follow up with Gastroenterology as she may necessitate more advanced imaging studies MRCP. At this time doubt acute surgical abdominal pathology. Doubt acute pancreatitis. Doubt acute appendicitis. Doubt cardiac etiology. Plan will be discharge home, recommended bland, low-fat foods, also initiating PPI therapy. Patient and her partner feel comfortable being discharged. All questions and concerns addressed by myself. Care of patient under supervision of secondary supervising physician Dr Garcia. - Data Points Laboratory Results: Laboratory Results 10/09/18 13:41 10/09/18 13:41 10/09/18 10/09/18 13:41 13:41 WBC 3.40 10^3/uL L 10^3/uL (3.80-9.50) RBC 4.94 10^6/uL 10^6/uL (4.18-5.33) Hgb 15.6 g/dL g/dL (12.6-16.3) Hct 46.9 % % (38.0-47.0) MCV 94.9 fL fL (81.5-99.8) MCH 31.6 pg pg (27.9-34.1) MCHC 33.3 g/dL g/dL (32.4-36.7) RDW 12.6 % % (11.5-15.2) Plt Count 222 10^3/uL 10^3/uL (150-400) MPV 9.7 fL fL (8.7-11.7) Neut % (Auto) 67.3 % % (39.3-74.2) Lymph % (Auto) 24.7 % % (15.0-45.0) Lipscomb % (Auto) 6.2 % % (4.5-13.0) Eos % (Auto) 0.3 % L % (0.6-7.6) Baso % (Auto) 0.6 % % (0.3-1.7) Nucleat RBC Rel Count 0.0 % % (0.0-0.2) Absolute Neuts (auto) 2.29 10^3/uL 10^3/uL (1.70-6.50) Absolute Lymphs (auto) 0.84 10^3/uL L 10^3/uL (1.00-3.00) Absolute Monos (auto) 0.21 10^3/uL L 10^3/uL (0.30-0.80) Absolute Eos (auto) 0.01 10^3/uL L 10^3/uL (0.03-0.40) Absolute Basos (auto) 0.02 10^3/uL 10^3/uL (0.02-0.10) Absolute Nucleated RBC 0.00 10^3/uL 10^3/uL (0-0.01) Immature Gran % 0.9 % % (0.0-1.1) Immature Gran # 0.03 10^3/uL 10^3/uL (0.00-0.10) Sodium 134 mEq/L L mEq/L (135-145) Potassium 5.2 mEq/L mEq/L (3.5-5.2) Chloride 107 mEq/L mEq/L (97-110) Carbon Dioxide 20 mEq/l L mEq/l (22-31) Anion Gap 7 mEq/L mEq/L (6-14) BUN 10 mg/dL mg/dL (7-23) Creatinine 0.7 mg/dL mg/dL (0.6-1.0) Estimated GFR > 60 Glucose 95 mg/dL mg/dL (70-100) Calcium 8.9 mg/dL mg/dL (8.5-10.4) Total Bilirubin 1.1 mg/dL mg/dL (0.1-1.4) Conjugated Bilirubin 0.8 mg/dL H mg/dL (0.0-0.5) Unconjugated Bilirubin 0.3 mg/dL mg/dL (0.0-1.1) AST 46 IU/L IU/L (14-46) ALT 26 IU/L IU/L (9-52) Alkaline Phosphatase 24 IU/L L IU/L (38-126) Total Protein 7.6 g/dL g/dL (6.3-8.2) Albumin 4.3 g/dL g/dL (3.5-5.0) Lipase 30 IU/L IU/L (23-300) Specimen Hemolysis 209 Medications Given: Discontinued Medications Al Hydroxide/Mg Hydroxide (Maalox Susp) 30 ml PO ONCE ONE Stop: 10/09/18 13:16 Last Admin: 10/09/18 13:24 Dose: 30 ml Famotidine (Pepcid) 40 mg PO EDNOW ONE Stop: 10/09/18 13:39 Last Admin: 10/09/18 14:20 Dose: 40 mg Hyoscyamine Sulfate (Levsin, Hyomax-Sl) 0.25 mg PO ONCE ONE Stop: 10/09/18 13:16 Last Admin: 10/09/18 13:24 Dose: 0.25 mg Sodium Chloride (Ns) 1,000 mls @ 0 mls/hr IV EDNOW ONE; Wide Open PRN Reason: Protocol Stop: 10/09/18 13:16 Last Admin: 10/09/18 13:38 Dose: 1,000 mls Lidocaine (Lidocaine 2% Viscous) 15 ml PO ONCE ONE Stop: 10/09/18 13:16 Last Admin: 10/09/18 13:24 Dose: 15 ml Ondansetron HCl (Zofran) 4 mg IVP EDNOW ONE Stop: 10/09/18 13:15 Last Admin: 10/09/18 13:38 Dose: 4 mg Departure - Departure Disposition: Home, Routine, Self-Care Clinical Impression: Abdominal pain Qualifiers: Abdominal location: right upper quadrant Qualified Code(s): R10.11 - Right upper quadrant pain Condition: Good Instructions: Acute Abdominal Pain (ED) Additional Instructions: Seek immediate medical attention if you develop new or worsening symptoms, if you develop fevers, chills, inability to tolerate oral intake or any other symptoms that concerns you. Recommend you eat low-fat, bland foods. Recommend you follow up with a financial sales advisor Referrals: Luis Daniel Camara MD [Medical Doctor] - 2-3 days, call for appt. Prescriptions: Pantoprazole Sodium [Protonix 40mg (RX)] 40 mg PO DAILY #30 tab
[2018-10-09 13:48] LABS: PLATELET COUNT 222 10^3/uL (150-400)
--- NOTE | 2018-10-09 14:34 | CPEKG ---
Test Reason : OPEN Blood Pressure : / mmHG Vent. Rate : 076 BPM Atrial Rate : 076 BPM P-R Int : 143 ms QRS Dur : 086 ms QT Int : 402 ms P-R-T Axes : 062 055 075 degrees QTc Int : 453 ms Sinus rhythm Borderline T abnormalities, anterior leads Confirmed by Suyapa Barajas ([id number]) on 10/09/2018 2:34:22 PM Referred By: SUYAPA BARAJAS Confirmed By:Suyapa Barajas
[2018-10-09 15:17] VITALS: BP 99/71
== END 2018-10-09 15:40 | disposition home or self-care (01) ==
DX: R10.11 Right upper quadrant pain (principal); K83.8 Other specified diseases of biliary tract; F31.9 Bipolar disorder, unspecified; F41.9 Anxiety disorder, unspecified; Z87.891 Personal history of nicotine dependence
CPT/HCPCS: 96374; J2405

== ENCOUNTER → 2018-10-28 | Outpatient (CLI) | payer MEDICAID ==
[~2018-10-28] MED LIST: IOPAMIDOL (ISOVUE-300) 100 ML BTL ONE
== END ==
LOC: FIMAGING 13:49
PROVIDERS: ATTEND Dentist General Practice
DX: K63.89 Other specified diseases of intestine (principal); R10.30 Lower abdominal pain, unspecified
CPT/HCPCS: Q9967